=== PATIENT | female | born 1935 | race Caucasian/White ===

== ENCOUNTER 2017-06-08 10:36 | Emergency (ER) | payer MEDICARE ==
[~2017-06-08] VITALS: Ht 160 cm; Wt 65.5 kg
[2017-06-08 10:54] VITALS: BP 193/103
== END 2017-06-08 11:35 | disposition home or self-care (01) ==
LOC: ER 10:39
DX: M54.12 Radiculopathy, cervical region (principal); M54.32 Sciatica, left side; M54.31 Sciatica, right side; R42 Dizziness and giddiness; Z86.69 Personal history of other diseases of the nervous system and sense organs
CPT/HCPCS: 99284

== ENCOUNTER 2018-11-10 10:09 | Emergency (ER) | payer MEDICARE ==
[~2018-11-10] VITALS: Ht 157.5 cm; Wt 61.0 kg
[2018-11-10] MEDS ORDERED: levoFLOXACIN 750MG TABLET PO ONE (11:00)
[2018-11-10 11:27] LABS: BASOPHILS % (AUTO) 0.5 % (0-1); EOSINOPHILS # (AUTO) 0.4 X10'3 (0-0.9); EOSINOPHILS % (AUTO) 3.5 % (0-6); HEMATOCRIT 41.2 % (35.0-45.0); HEMOGLOBIN 13.7 g/dl (12.0-16.0); LYMPHOCYTES % (AUTO) 9.6 % (21-51); MEAN CORPUSCULAR HGB CONC 33.3 g/dL (33.0-36.5); MEAN CORPUSCULAR VOLUME 90.1 FL (78-98); MEAN PLATELET VOLUME 7.8 FL (7.4-10.4); MONOCYTES # (AUTO) 0.7 X10'3 (0-0.9); MONOCYTES % (AUTO) 6.3 % (2-12); NEUTROPHILS # (AUTO) 8.3 X10'3 (1.8-7.7); NEUTROPHILS % (AUTO) 80.1 % (42-75); PLATELET COUNT 214 X10'3 (140-440); RED BLOOD COUNT 4.57 X10'6 (4.20-5.60); RED CELL DISTRIBUTION WIDTH 14.2 % (11.5-14.5); WHITE BLOOD COUNT 10.4 X10'3 (4.5-11.0)
[2018-11-10 11:40] LABS: CLARITY,URINE CLEAR (Clear); COLOR,URINE YELLOW (Yellow); GLUCOSE, URINE NEGATIVE (Neg); KETONES,URINE NEGATIVE (Neg); LEUKOCYTE ESTERASE ,URINE NEGATIVE (Neg); NITRITES, URINE NEGATIVE (Neg); OCCULT BLOOD,URINE NEGATIVE (Neg); PH,URINE 5.5 (4.8-8.0); PROTEIN,URINE 100 mg/dl (Neg); UROBILINOGEN,URINE 0.2 E.U/dL (0.2-1.0)
[2018-11-10 11:53] LABS: UA COLLECTION TYPE CLN CATCH MIDSTREAM
[2018-11-10 11:54] LABS: WBC,URINE 0-4 /HPF (0-4)
[2018-11-10 11:55] LABS: AMORPHOUS URATES 1+; BACTERIA,URINE 1+ /HPF (Neg); MUCUS STRANDS FEW /LPF (Neg); RBC,URINE NONE SEEN /HPF (0-2); SQUAMOUS EPITHELIAL CELL,UR MANY /LPF (FEW); TRANSITIONAL EPI CELLS,URINE FEW /HPF
[2018-11-10 11:55] LABS: ALANINE AMINOTRANSFERASE 19 U/L (12-78); ALBUMIN 3.1 G/DL (3.4-5.0); ALBUMIN/GLOBULIN RATIO 0.7 (1.1-1.5); ALKALINE PHOSPHATASE 80 IU/L (46-116); ANION GAP 8 (8-16); ASPARTATE AMINO TRANSFERASE 18 U/L (10-37); BILIRUBIN,TOTAL 0.6 MG/DL (0.1-1.0); BLOOD UREA NITROGEN 18 MG/DL (7-18); BUN/CREATININE RATIO 13.8 (6.6-38.0); CALCIUM 9.1 MG/DL (8.5-10.1); CHLORIDE 103 MMOL/L (99-107); GLUCOSE 103 MG/DL (70-104); MAGNESIUM 1.8 MG/DL (1.5-2.4); POTASSIUM 4.6 MMOL/L (3.5-5.1); SODIUM 138 MMOL/L (135-145); TOTAL CARBON DIOXIDE 26.6 MMOL/L (24-32); TOTAL PROTEIN 7.3 G/DL (6.4-8.2); eGFR 39 ML/MIN
[2018-11-10 11:56] LABS: FINE GRANULAR CAST 0-3 /LPF (NEGATIVE); HYALINE CASTS 0-3 /LPF (NEGATIVE)
[2018-11-10 11:56] LABS: PARTIAL THROMBOPLASTIN TIME 28 SECONDS (22-32)
[2018-11-10] MEDS ORDERED: normal saline 1000ml 1,000 ML IV ONE (12:30)
[2018-11-10] MEDS ORDERED: LEVO500T2 PO (13:55)
[2018-11-10 14:13] VITALS: BP 150/73
== END 2018-11-10 14:20 | disposition home or self-care (01) ==
LOC: ER 10:10
DX: J22 Unspecified acute lower respiratory infection (principal)
CPT/HCPCS: 36415; 71045; 80053; 81001; 83605; 83735; 83880; 84145; 85025; 85610; 85730; 87040; 93005; 99284; J7030

== ENCOUNTER 2019-07-24 16:04 | Emergency (ER) | payer MEDICARE, MEDICAID ==
[~2019-07-24] VITALS: Ht 157.5 cm; Wt 56.8 kg
[2019-07-24 16:43] VITALS: BP 132/78
[2019-07-24] MEDS ORDERED: AMOX-117 PO (17:40)
== END 2019-07-24 17:57 | disposition home or self-care (01) ==
LOC: ER 16:05
DX: H66.92 Otitis media, unspecified, left ear (principal); I25.10 Atherosclerotic heart disease of native coronary artery without angina pectoris; J44.9 Chronic obstructive pulmonary disease, unspecified; Z95.1 Presence of aortocoronary bypass graft; Z79.2 Long term (current) use of antibiotics
CPT/HCPCS: 99283

== ENCOUNTER 2020-10-05 12:52 | Emergency (ER) | payer MEDICARE, MEDICAID ==
[~2020-10-05] VITALS: Ht 162.6 cm; Wt 54.5 kg
[~2020-10-05 12:52] MED LIST: ACET-1025 PO; ALBU17AE26 IH; ASPI-611 PO; LEVO200T8 PO; LOP25T PO; MELA10TA2 PO; METF-950 PO; ROPI1TAB6 PO; SIMV-45 PO
[2020-10-05 14:06] VITALS: BP 175/107
[2020-10-05 14:36] LABS: BASOPHILS # (AUTO) 0.1 X10'3 (0-0.2); BASOPHILS % (AUTO) 0.5 % (0-1); EOSINOPHILS # (AUTO) 0.2 X10'3 (0-0.9); EOSINOPHILS % (AUTO) 1.7 % (0-6); HEMATOCRIT 37.8 % (35.0-45.0); HEMOGLOBIN 12.3 g/dl (12.0-16.0); LYMPHOCYTES # (AUTO) 1.2 X10'3 (1.1-4.8); LYMPHOCYTES % (AUTO) 12.8 % (21-51); MEAN CORPUSCULAR HGB CONC 32.5 g/dL (33.0-36.5); MEAN CORPUSCULAR VOLUME 89.3 FL (78-98); MEAN PLATELET VOLUME 7.6 FL (7.4-10.4); MONOCYTES # (AUTO) 0.7 X10'3 (0-0.9); MONOCYTES % (AUTO) 7.4 % (2-12); NEUTROPHILS # (AUTO) 7.2 X10'3 (1.8-7.7); NEUTROPHILS % (AUTO) 77.6 % (42-75); PLATELET COUNT 242 X10'3 (140-440); RED BLOOD COUNT 4.23 X10'6 (4.20-5.60); RED CELL DISTRIBUTION WIDTH 14.2 % (11.5-14.5); WHITE BLOOD COUNT 9.3 X10'3 (4.5-11.0)
[2020-10-05 14:50] LABS: ALANINE AMINOTRANSFERASE 12 U/L (12-78); ALBUMIN 2.7 G/DL (3.4-5.0); ALBUMIN/GLOBULIN RATIO 0.6 (1.1-1.5); ALKALINE PHOSPHATASE 76 IU/L (46-116); ANION GAP 8 (8-16); ASPARTATE AMINO TRANSFERASE 21 U/L (10-37); BILIRUBIN,TOTAL 0.4 MG/DL (0.1-1.0); BLOOD UREA NITROGEN 15 MG/DL (7-18); BUN/CREATININE RATIO 12.6 (6.6-38.0); CALCIUM 9.5 MG/DL (8.5-10.1); CHLORIDE 102 MMOL/L (99-107); CREATININE 1.19 MG/DL (0.40-0.90); GLUCOSE 100 MG/DL (70-104); SODIUM 143 MMOL/L (135-145); TOTAL CARBON DIOXIDE 33.2 MMOL/L (24-32); TOTAL PROTEIN 7.5 G/DL (6.4-8.2); eGFR 43 ML/MIN
== END 2020-10-05 15:22 | disposition home or self-care (01) ==
LOC: ER 12:53
DX: R53.1 Weakness (principal); R06.02 Shortness of breath; R53.83 Other fatigue; R63.0 Anorexia; I48.91 Unspecified atrial fibrillation; I25.10 Atherosclerotic heart disease of native coronary artery without angina pectoris; E78.00 Pure hypercholesterolemia, unspecified; J44.9 Chronic obstructive pulmonary disease, unspecified; I12.9 Hypertensive chronic kidney disease with stage 1 through stage 4 chronic kidney disease, or unspecified chronic kidney disease; E11.22 Type 2 diabetes mellitus with diabetic chronic kidney disease; N18.9 Chronic kidney disease, unspecified; Z86.73 Personal history of transient ischemic attack (TIA), and cerebral infarction without residual deficits; Z98.890 Other specified postprocedural states; Z79.82 Long term (current) use of aspirin; Z79.899 Other long term (current) drug therapy
CPT/HCPCS: 36415; 71045; 80053; 84484; 85025; 93005; 99285

== ENCOUNTER 2022-01-27 09:02 | Emergency (ER) | payer MEDICARE, MEDICAID ==
[~2022-01-27] VITALS: Ht 160 cm; Wt 48.2 kg
[~2022-01-27 09:02] MED LIST changes: +METF-1203 PO; -METF-950 PO
--- NOTE | 2022-01-27 10:37 | NUR ---
BP took on BUE, keeps on going up (see vital sign flow sheet). RN provided bedside pt education, pt advised that she might have forgotten to take metoprolol. RN advised that elevated BP could be due to rebound hypertension, it is pertinent to take cardiac medications as ordered by MD.
[2022-01-27] MEDS ORDERED: ibuprofen tablet 400 MG TABLET PO ONE (10:55)
[2022-01-27] MEDS ORDERED: IBUP-1984 PO (11:34)
[2022-01-27] MEDS ORDERED: metoprolol succinate 25mg (24-HOUR) SR. Tablet PO ONE (11:35)
[2022-01-27] MEDS ORDERED: metoprolol succinate 25mg (24-HOUR) SR. Tablet PO SCH (11:35)
[2022-01-27 11:55] VITALS: BP 198/94
== END 2022-01-27 12:01 | disposition home or self-care (01) ==
LOC: ER 09:02
DX: M25.511 Pain in right shoulder (principal); I13.0 Hypertensive heart and chronic kidney disease with heart failure and stage 1 through stage 4 chronic kidney disease, or unspecified chronic kidney disease; E13.22 Other specified diabetes mellitus with diabetic chronic kidney disease; N18.9 Chronic kidney disease, unspecified; I50.89 Other heart failure; Z79.82 Long term (current) use of aspirin; Z79.84 Long term (current) use of oral hypoglycemic drugs; Z79.899 Other long term (current) drug therapy
CPT/HCPCS: 73030; 99284

== ENCOUNTER 2023-11-13 18:48 | Inpatient (IN) | payer MEDICARE, MEDICAID ==
[~2023-11-13] VITALS: Ht 157.5 cm; Wt 41.8 kg
[~2023-11-13 18:48] MED LIST changes: +ROPI1TAB47 PO; -ROPI1TAB6 PO
[2023-11-13 19:36] LABS: BASOPHILS % (AUTO) 0.5 % (0-1); EOSINOPHILS # (AUTO) 0.1 X10'3 (0-0.9); EOSINOPHILS % (AUTO) 0.7 % (0-6); HEMATOCRIT 43.9 % (35.0-45.0); HEMOGLOBIN 14.3 g/dl (12.0-16.0); LYMPHOCYTES # (AUTO) 0.6 X10'3 (1.1-4.8); LYMPHOCYTES % (AUTO) 6.3 % (21-51); MEAN CORPUSCULAR HEMOGLOBIN 29.2 PG (27.0-31.0); MEAN CORPUSCULAR HGB CONC 32.6 g/dL (33.0-36.5); MEAN CORPUSCULAR VOLUME 89.6 FL (78-98); MEAN PLATELET VOLUME 8.1 FL (7.4-10.4); MONOCYTES # (AUTO) 0.5 X10'3 (0-0.9); MONOCYTES % (AUTO) 6.1 % (2-12); NEUTROPHILS # (AUTO) 7.8 X10'3 (1.8-7.7); NEUTROPHILS % (AUTO) 86.4 % (42-75); PLATELET COUNT 208 X10'3 (140-440)
[2023-11-13 19:53] LABS: ALBUMIN 2.6 G/DL (3.4-5.0); ANION GAP 6 (8-16); BLOOD UREA NITROGEN 41 MG/DL (7-18); BUN/CREATININE RATIO 21.1 (10.0-20.0); CALCIUM 9.2 MG/DL (8.5-10.1); CHLORIDE 103 MMOL/L (99-107); CREATININE 1.94 MG/DL (0.40-0.90); GLUCOSE 138 MG/DL (70-104); POTASSIUM 5.3 MMOL/L (3.5-5.1); SODIUM 138 MMOL/L (135-145); TOTAL CARBON DIOXIDE 29.4 MMOL/L (24-32); eCRCL 13 ML/MIN; eGFR 24 ML/MIN
[2023-11-13 19:58] LABS: PRO BRAIN NATRIURETIC PEPTIDE > 30000 PG/ML (0-450)
[2023-11-13] MEDS ORDERED: HYDROcodone/acetaminophen 5mg/325mg tablet PO PRN (21:25)
[2023-11-13] MEDS ORDERED: mag hydrox/Alum hydrox/simeth 30ml oral suspension PO PRN (21:25)
[2023-11-13] MEDS ORDERED: magnesium 2GM in 50ml NS 50 ML IV PRN (21:25)
[2023-11-13] MEDS ORDERED: morphine 2 MG/ML inj. syringe IV PRN ×2 (21:25)
[2023-11-13] MEDS ORDERED: acetaminophen 325mg tablet PO PRN (21:25)
[2023-11-13] MEDS ORDERED: ondansetron/PF 4mg/2ml inj IV PRN (21:25)
[2023-11-13] MEDS ORDERED: HYDROcodone/acetaminophen 10/325mg tab PO PRN (21:25)
[2023-11-13] MEDS ORDERED: magnesium 4gm in 100ml NS 100 ML IV PRN (21:25)
[2023-11-13] MEDS ORDERED: ondansetron 4mg rapidly disintigrating tab PO PRN (21:25)
[2023-11-13] MEDS ORDERED: magnesium Cl slow-release 64mg tablet PO PRN (21:25)
[2023-11-13] MEDS ORDERED: potassium Cl 20 mEq SR tablet PO PRN ×2 (21:25)
[2023-11-13] MEDS ORDERED: magnesium hydroxide 30ml (MOM) UD suspension PO PRN (21:25)
[2023-11-13] MEDS ORDERED: potassium Cl 40MEQ/1/2NS 520ml 520 ML IV PRN (21:25)
[2023-11-13] MEDS: PERFLUTREN PROTEIN-A MICROSPHR (Optison) 0.22 MG/ML 3ML VIAL IV ONE (22:01)
[2023-11-13] MEDS: furosemide 10 MG/1 ML 10ml inj IV ONE (22:02)
[2023-11-13] MEDS ORDERED: UNABLE TO OBTAIN (22:07)
[2023-11-13 22:10] LABS: MAGNESIUM 2.1 MG/DL (1.5-2.4); PHOSPHORUS 4.1 MG/DL (2.3-4.5)
[2023-11-13 22:54] LABS: APTT 24 SECONDS (22-32); PROTHROMBIN TIME 10.9 SECONDS (9.0-12.0)
[2023-11-13] MEDS ORDERED: hydrALAZINE 20mg/ml inj. IV PRN (23:05)
[2023-11-13 23:31] LABS: HEMOGLOBIN A1C 6.1 % (4.5-6.2)
[2023-11-13] MEDS: hydrALAZINE 20mg/ml inj. IV ONE (23:33)
[2023-11-13 23:37] LABS: FREE T4 (FREE THYROXINE) 1.64 NG/DL (0.73-1.40); THYROID STIMULATING HORMONE 0.03 ulU/ml (0.34-4.50)
[2023-11-13 23:38] LABS: BILIRUBIN,URINE NEGATIVE (Neg); CLARITY,URINE CLEAR (Clear); COLOR,URINE STRAW (Yellow); GLUCOSE, URINE NEGATIVE (Neg); KETONES,URINE NEGATIVE (Neg); LEUKOCYTE ESTERASE ,URINE NEGATIVE (Neg); NITRITES, URINE NEGATIVE (Neg); OCCULT BLOOD,URINE NEGATIVE (Neg); PH,URINE 6.5 (4.8-8.0); PROTEIN,URINE NEGATIVE (Neg); UROBILINOGEN,URINE 0.2 E.U/dL (0.2-1.0)
[2023-11-13 23:48] LABS: UA COLLECTION TYPE CLN CATCH MIDSTREAM
[2023-11-14] MEDS: albuterol 2.5 MG/3 ML nebule NEB PRN (00:15)
[2023-11-14 00:16] VITALS: PULSE 79; RESP 24; O2SAT 93
[2023-11-14 00:24] VITALS: PULSE 81; RESP 20
[2023-11-14] MEDS: LORazepam 0.5 MG tablet PO ONE (00:29)
[2023-11-14 01:18] VITALS: BP 151/65; PULSE 79; RESP 18; TEMP 97.7; O2SAT 95
[2023-11-14 06:00] VITALS: BP 137/60; PULSE 73; RESP 15; TEMP 97.5; O2SAT 95
[2023-11-14 06:10] LABS: BASOPHILS % (AUTO) 0.5 % (0-1); EOSINOPHILS % (AUTO) 0.4 % (0-6); HEMATOCRIT 49.2 % (35.0-45.0); HEMOGLOBIN 15.9 g/dl (12.0-16.0); LYMPHOCYTES # (AUTO) 0.7 X10'3 (1.1-4.8); LYMPHOCYTES % (AUTO) 7.3 % (21-51); MEAN CORPUSCULAR HEMOGLOBIN 29.2 PG (27.0-31.0); MEAN CORPUSCULAR HGB CONC 32.3 g/dL (33.0-36.5); MEAN CORPUSCULAR VOLUME 90.2 FL (78-98); MEAN PLATELET VOLUME 8.3 FL (7.4-10.4); MONOCYTES # (AUTO) 0.7 X10'3 (0-0.9); MONOCYTES % (AUTO) 7.1 % (2-12); NEUTROPHILS # (AUTO) 8.4 X10'3 (1.8-7.7); NEUTROPHILS % (AUTO) 84.7 % (42-75); PLATELET COUNT 232 X10'3 (140-440); RED BLOOD COUNT 5.45 X10'6 (4.20-5.60); WHITE BLOOD COUNT 9.9 X10'3 (4.5-11.0)
[2023-11-14 06:19] LABS: ALANINE AMINOTRANSFERASE 41 U/L (12-78); ALBUMIN 2.9 G/DL (3.4-5.0); ALBUMIN/GLOBULIN RATIO 0.5 (1.1-1.5); ALKALINE PHOSPHATASE 108 IU/L (46-116); ANION GAP 7 (8-16); ASPARTATE AMINO TRANSFERASE 30 U/L (10-37); BILIRUBIN,TOTAL 0.7 MG/DL (0.1-1.0); BLOOD UREA NITROGEN 37 MG/DL (7-18); BUN/CREATININE RATIO 19.8 (10.0-20.0); CALCIUM 9.5 MG/DL (8.5-10.1); CHLORIDE 100 MMOL/L (99-107); CREATININE 1.87 MG/DL (0.40-0.90); GLUCOSE 77 MG/DL (70-104); PHOSPHORUS 3.5 MG/DL (2.3-4.5); POTASSIUM 4.4 MMOL/L (3.5-5.1); SODIUM 140 MMOL/L (135-145); TOTAL CARBON DIOXIDE 32.9 MMOL/L (24-32); TOTAL PROTEIN 8.4 G/DL (6.4-8.2); eCRCL 14 ML/MIN; eGFR 25 ML/MIN
[2023-11-14] MEDS: docusate sod 100mg capsule PO SCH (08:00)
[2023-11-14] MEDS: K and/or MAG REPLACEMENT MC SCH (08:00)
[2023-11-14] MEDS: furosemide 10 MG/1 ML 10ml inj IV SCH (09:11)
[2023-11-14 11:00] VITALS: BP 118/59; PULSE 88; RESP 14; TEMP 97.3; O2SAT 93
[2023-11-14] MEDS ORDERED: non-formulary drug (Albuterol 2 PUFFS) IH PRN (11:30)
[2023-11-14] MEDS ORDERED: TYPE IN GENERIC & BRAND NAME OF PATIENT MED STRENGTH & FORM PO PRN (11:30)
[2023-11-14] MEDS ORDERED: FURO20TA4 PO (11:48)
[2023-11-14] MEDS ORDERED: LEVO150T PO (11:48)
[2023-11-14] MEDS ORDERED: furosemide 40 MG/4 ML oral solution UD cup PO SCH (20:00)
[2023-11-14] MEDS ORDERED: metoprolol tartrate 25mg tablet PO SCH (20:00)
[2023-11-14] MEDS ORDERED: enoxaparin 40mg/0.4ml syringe SQ SCH (20:00)
[2023-11-14] MEDS ORDERED: atorvastatin 20mg tablet PO SCH (21:00)
[2023-11-14] MEDS ORDERED: MELATONIN 10MG TAB PO SCH (21:00)
[2023-11-14] MEDS ORDERED: ROPINIRole 1mg tablet PO SCH (21:00)
[2023-11-15] MEDS ORDERED: levoTHYROXINE 100mcg tablet PO SCH (08:00)
[2023-11-15] MEDS ORDERED: aspirin 81mg, enteric-coated 1 TAB TABLET.DR PO SCH (08:00)
== END 2023-11-14 14:48 | disposition home health service (06) | DRG 189 ==
LOC: ER 18:48 → ED HOLD 21:30 → EDBEDREQ 11-14 00:13 → PCU 3S 11-14 01:00
PROVIDERS: ADMIT Surgery Surgical Critical Care; ATTEND Family Medicine
DX: J96.21 Acute and chronic respiratory failure with hypoxia (principal); I50.23 Acute on chronic systolic (congestive) heart failure; I13.0 Hypertensive heart and chronic kidney disease with heart failure and stage 1 through stage 4 chronic kidney disease, or unspecified chronic kidney disease; N18.4 Chronic kidney disease, stage 4 (severe); Z68.1 Body mass index [BMI] 19.9 or less, adult; E44.0 Moderate protein-calorie malnutrition; I16.0 Hypertensive urgency; I48.91 Unspecified atrial fibrillation; E11.22 Type 2 diabetes mellitus with diabetic chronic kidney disease; E87.5 Hyperkalemia; I25.10 Atherosclerotic heart disease of native coronary artery without angina pectoris; J44.9 Chronic obstructive pulmonary disease, unspecified; E78.00 Pure hypercholesterolemia, unspecified; Z79.82 Long term (current) use of aspirin; Z79.899 Other long term (current) drug therapy; Z95.1 Presence of aortocoronary bypass graft; Z99.81 Dependence on supplemental oxygen; Z79.84 Long term (current) use of oral hypoglycemic drugs; Z87.891 Personal history of nicotine dependence
CPT/HCPCS: 36415; 71045; 80048; 80053; 81003; 83036; 83735; 83880; 84100; 84439; 84443; 84480; 84484; 85025; 85610; 85730; 87081; 93005; 93306; 94640; 99285; A4615; G0378; J0360; J1940

== ENCOUNTER 2024-05-08 16:44 | Emergency (ER) | payer MEDICARE, MEDICAID ==
[~2024-05-08] VITALS: Ht 154.9 cm; Wt 49.7 kg
[~2024-05-08 16:44] MED LIST changes: +FURO20TA4 PO; +LEVO150T PO; -LEVO200T8 PO; -METF-1203 PO; +sodium bicarbonate (8.4%) 1 mEq/ml syringe ONE
[2024-05-08 17:17] VITALS: BP 127/56; PULSE 108; RESP 16; O2SAT 92
[2024-05-08] MEDS: normal saline 1000ML IV soln IVB ONE (17:38)
[2024-05-08] MEDS: NORepinephrine 8mg/ 250ml NS 250 ML IV SCH (17:40)
[2024-05-08 17:45] VITALS: TEMP 93.4
[2024-05-08 17:45] LABS: EOSINOPHILS % (AUTO) 0.2 % (0-6); MEAN PLATELET VOLUME 9.2 FL (7.4-10.4)
[2024-05-08] MEDS ORDERED: dextrose 50%-water 50ml dispensing syringe IV ONE (17:45)
[2024-05-08 17:46] LABS: BASOPHILS % (AUTO) 0.2 % (0-1); LYMPHOCYTES # (AUTO) 1.8 X10'3 (1.1-4.8); LYMPHOCYTES % (AUTO) 24.7 % (21-51); MONOCYTES # (AUTO) 0.2 X10'3 (0-0.9); MONOCYTES % (AUTO) 3.4 % (2-12); NEUTROPHILS # (AUTO) 5.1 X10'3 (1.8-7.7); NEUTROPHILS % (AUTO) 71.5 % (42-75); PLATELET COUNT 83 X10'3 (140-440); WHITE BLOOD COUNT 7.1 X10'3 (4.5-11.0)
[2024-05-08 17:50] LABS: ABG BASE EXCESS -18.3 mmol/L (-2.0-3.0); ABG HCO3 11.8 mmol/L (21.0-28.0); ABG OXYGEN SATURATION 97.4 % (94.0-98.0); ABG PCO2 (T) 42.1 mmHg (32.0-45.0); ABG PH (T) 7.047 (7.350-7.450); ABG PO2 (T) 125.3 mmHg (83.0-108.0); FCOHb 0.3 % (0.5-1.5); FHHb 2.6 % (0.0-5.0); FMetHb 0.3 % (0.0-1.5); FO2Hb 96.8 % (94.0-98.0); MODE VENT - AC; PATIENT TEMPERATURE 34.1; PEEP 5 cm H2O; RESPIRATORY RATE 16 b/min; TIDAL VOLUME 350 mL; TOTAL HEMOGLOBIN 9.2 G/dl (12.0-16.0)
[2024-05-08] MEDS: epiNEPHrine 1 mg/ml inj IV STA ×2 (17:52→17:55)
[2024-05-08] MEDS: atropine 1 MG/1 ML vial IV ONE (17:54)
[2024-05-08 17:55] VITALS: BP 85/58; PULSE 85; RESP 20; O2SAT 97
[2024-05-08 18:14] LABS: ISTAT ANION GAP 14 (8-12); ISTAT BUN 58 mg/dL (7-18); ISTAT CL 111 mmol/L (99-107); ISTAT CREATININE 2.5 mg/dL (0.6-1.1); ISTAT GLUCOSE > 600 mg/dL (70-104); ISTAT HGB 7.8 g/dl (12.0-16.0); ISTAT Hct 23 %PCV (35-45); ISTAT IONIZED CALCIUM 1.25 mmol/L (1.03-1.32); ISTAT K 6.5 mmol/L (3.5-5.1); ISTAT NA 139 mmol/L (135-145); ISTAT TOTAL CO2 14 mmol/L (24-32); ISTAT eGFR 18 ML/MIN; POC BUN/CREATININE RATIO 23.2 (6.6-38.0)
[2024-05-08 18:18] LABS: HEMOGLOBIN 7.5 g/dl (12.0-16.0)
[2024-05-08] MEDS: dextrose 50%-water 50ml dispensing syringe IV ONE (18:18)
[2024-05-08 18:19] LABS: ALBUMIN 0.8 G/DL (3.4-5.0); ALBUMIN/GLOBULIN RATIO 0.4 (1.1-1.5); ALKALINE PHOSPHATASE 115 IU/L (46-116); ANION GAP 10 (8-16); BILIRUBIN,TOTAL 0.5 MG/DL (0.1-1.0); BLOOD UREA NITROGEN 58 MG/DL (7-18); BUN/CREATININE RATIO 19.7 (10.0-20.0); CALCIUM 8.3 MG/DL (8.5-10.1); CHLORIDE 104 MMOL/L (99-107); CREATININE 2.94 MG/DL (0.40-0.90); MEAN CORPUSCULAR HEMOGLOBIN 31.9 PG (27.0-31.0); MEAN CORPUSCULAR HGB CONC 33.9 g/dL (33.0-36.5); MEAN CORPUSCULAR VOLUME 94.1 FL (78-98); PRO BRAIN NATRIURETIC PEPTIDE 26624 PG/ML (0-450); SODIUM 132 MMOL/L (135-145); TOTAL CARBON DIOXIDE 18.2 MMOL/L (24-32); TOTAL PROTEIN 2.7 G/DL (6.4-8.2); eCRCL 10 ML/MIN; eGFR 15 ML/MIN
[2024-05-08 18:21] LABS: RED CELL DISTRIBUTION WIDTH 17.1 % (11.5-14.5)
[2024-05-08] MEDS: insulin regular, human 10 units/0.1 ml syringe IV ONE (18:21)
[2024-05-08] MEDS: sodium bicarbonate 1meq/ml inj 150 ML in dextrose 5%-water 1,000 ML IV SCH (18:24)
[2024-05-08 18:31] VITALS: BP_SYST 121
[2024-05-08] MEDS: epiNEPHrine inj 5 MG in normal saline 250ml IV soln 245 ML IV SCH (18:31)
[2024-05-08] MEDS: morphine 10mg/ml inj. IV ONE (18:39)
[2024-05-08 18:56] LABS: ALANINE AMINOTRANSFERASE 1185 U/L (12-78); ASPARTATE AMINO TRANSFERASE 1770 U/L (10-37)
[2024-05-08 18:59] LABS: GLUCOSE 853 MG/DL (70-104); POTASSIUM 6.2 MMOL/L (3.5-5.1)
[2024-05-08] MEDS ORDERED: NORepinephrine 32 MG in normal saline 250ml IV soln 218 ML IV SCH (19:00)
== END 2024-05-08 19:38 ==
LOC: ER 16:45
DX: I46.9 Cardiac arrest, cause unspecified (principal); I48.91 Unspecified atrial fibrillation; I25.10 Atherosclerotic heart disease of native coronary artery without angina pectoris; I13.0 Hypertensive heart and chronic kidney disease with heart failure and stage 1 through stage 4 chronic kidney disease, or unspecified chronic kidney disease; E11.22 Type 2 diabetes mellitus with diabetic chronic kidney disease; I50.9 Heart failure, unspecified; N18.9 Chronic kidney disease, unspecified; J44.9 Chronic obstructive pulmonary disease, unspecified; E78.00 Pure hypercholesterolemia, unspecified; M19.90 Unspecified osteoarthritis, unspecified site; E07.9 Disorder of thyroid, unspecified; Z95.1 Presence of aortocoronary bypass graft; Z86.73 Personal history of transient ischemic attack (TIA), and cerebral infarction without residual deficits; Z79.82 Long term (current) use of aspirin; Z79.899 Other long term (current) drug therapy
CPT/HCPCS: 31500; 36415; 36556; 36600; 71045; 80047; 80053; 82803; 82948; 83880; 84484; 85018; 85025; 93005; 99291; C1751; C1758; J0171; J0461; J1815; J2270; J3490; J7030; J7050; J7070; 94002; 94760; 96365; 96366; 96368; 96375; 96376; 99285; J2274